=== PATIENT | male | born 1950 | race Caucasian/White ===

== ENCOUNTER 2021-11-17 13:29 | Outpatient (CLI) | payer OTHER, SELFPAY | END 2021-11-22 13:05 | disposition home or self-care (01) | LOC: PHYS 13:31 | PROVIDERS: PCP Registered Nurse; Referring Provider Registered Nurse; Visit Provider Registered Nurse | DX: S66.812D Strain of other specified muscles, fascia and tendons at wrist and hand level, left hand, subsequent encounter (principal) | CPT/HCPCS: 95886; 95910 ==

== ENCOUNTER → 2025-04-02 15:23 | Outpatient (CLI) | payer OTHER, SELFPAY | LOC: ECHO 15:26 | PROVIDERS: PCP Registered Nurse; Referring Provider Physician Assistant; Visit Provider Physician Assistant | DX: I37.1 Nonrheumatic pulmonary valve insufficiency (principal); I25.10 Atherosclerotic heart disease of native coronary artery without angina pectoris; I77.810 Thoracic aortic ectasia | CPT/HCPCS: 93306 ==